=== PATIENT | male | born 1975 | race Caucasian/White ===

== ENCOUNTER 2017-09-02 12:56 | Emergency (ER) | payer BC ==
--- NOTE | 2017-09-02 15:07 | UC ---
Abdominal Pain Male HPI - HPI Summary HPI Summary: Pt presents with ongoing diarrhea and loose stools. He tells me that he had the "stomach bug" in late May - vomiting and diarrhea for 3-4 days. Since that time he has felt bloated and has had daily diarrhea 4-6 times a day. He will have a sudden urge to move his bowels and have to run to the bathroom. 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 None of his co-workers are sick. Over the last week he has had some anal itching and scant bright red blood on the toilet paper. Denies diet change , fever, chills, SOB, chest pain, abdominal pain, n/v, dysuria. - History of Current Complaint Stated Complaint: UPSET STOMACH Time Seen by Provider: 09/02/17 14:58 Hx Obtained From: Patient Onset/Duration: Gradual Onset Severity Currently: None - Allergies/Home Medications Allergies/Adverse Reactions: Allergies Allergy/AdvReac Type Severity Reaction Status Date / Time No Known Allergies Allergy Verified 09/02/17 14:56 Home Medications: Home Medications Calcium Carbonate CHEW TAB* [Tums*] 1,000 mg PO BID PRN 09/02/17 [History Confirmed 09/02/17] Naproxen Sodium [Aleve] 220 mg PO DAILY PRN 09/02/17 [History Confirmed 09/02/17 ] PMH/Surg Hx/FS Hx/Imm Hx Previously Healthy: Yes - Surgical History Surgical History: None - Family History Known Family History: Positive: Unknown - Social History Occupation: Employed Full-time Lives: With Family Alcohol Use: Daily Substance Use Type: None Type: Cigarettes Amount Used/How Often: 1 ppd Review of Systems Constitutional: Negative Skin: Negative Respiratory: Negative Cardiovascular: Negative Gastrointestinal: Diarrhea Genitourinary: Negative Neurovascular: Negative Musculoskeletal: Negative Neurological: Negative Psychological: Negative All Other Systems Reviewed And Are Negative: Yes Physical Exam - Summary Physical Exam Summary: GENERAL: NAD. WDWN. No pain distress. SKIN: No rashes, sores, ulcers, masses, lesions. NECK: Supple. Nontender. No lymphadenopathy. CHEST: CTAB. No r/r/w. No accessory muscle use. Breathing comfortably and in no distress. CV: RRR. Without m/r/g. Pulses intact. Brisk cap refill. ABDOMEN: Soft. NTTP. No distention or guarding. No organomegaly. No CVA tenderness. Bowel sounds present x4. NEURO: Alert. CN II-XII grossly intact. PSYCH: Age appropriate behavior. Refused rectal exam today. Triage Information Reviewed: Yes Abd Pain Male Course/Dx - Course Course Of Treatment: Pt is asking that no tests or referrals be made because he is unsure what his insurance will cover. I think, at minimum, getting stool cultures are important for his current condition. He was agreeable to this. - Differential Dx/Clinical Impression Provider Diagnoses: Diarrhea Discharge - Sign-Out/Discharge Documenting (check all that apply): Discharge - Discharge Plan Condition: Stable Disposition: HOME Prescriptions: Ciprofloxacin TAB* [Cipro 500 MG TAB*] 500 mg PO BID #10 tab Hydrocortisone SUPP* [Anusol HC Supp*] 25 mg [place] BID #14 supp metroNIDAZOLE [Flagyl 500 MG TAB] 500 mg PO TID #15 tab Patient Education Materials: Chronic Diarrhea (ED) Referrals: No Primary Care Phys,NOPCP [Primary Care Provider] - Additional Instructions: If you develop a fever, shortness of breath, chest pain, new or worsening symptoms - please call your PCP or go to the ED. Your blood pressure was high at todays visit. Please see your primary provider within 4 weeks for recheck and re-evaluation. - Billing Disposition and Condition Condition: STABLE Disposition: HOME
[2017-09-02 15:09] VITALS: BP 151/82
== END 2017-09-02 15:45 | disposition home or self-care (01) ==
LOC: UCCORT 12:56
DX: R19.7 Diarrhea, unspecified (principal); F17.210 Nicotine dependence, cigarettes, uncomplicated
CPT/HCPCS: 99212; G0463

== ENCOUNTER 2022-06-15 20:05 | Observation (INO) ==
[2022-06-15 20:42] LABS: ABS Basophils 0.1 10^3/ul (0-0.2); ABS Eosinophils 0.1 10^3/ul (0-0.6); ABS Lymphocytes 2.7 10^3/ul (1.0-4.8); ABS Monocytes 1.5 10^3/ul (0-0.8); ABS Neutrophils 12.7 10^3/ul (1.5-7.7); Eosinophil % 0.3 %; Hematocrit 46 % (42-52); Hemoglobin 15.7 g/dL (14.0-18.0); Lymphocyte % 16.1 %; Mean Corpuscular HGB Conc 34 g/dL (31-36); Mean Corpuscular Hemoglobin 31 pg (27-31); Mean Corpuscular Volume 89 fL (80-94); Mean Platelet Volume 8.3 fL (7.4-10.4); Platelet Count 188 10^3/uL (150-450); Red Blood Count 5.15 10^6 /uL (4.18-5.48); Red Cell Distribution Width 13 % (10-15); White Blood Count 17.1 10^3/uL (3.5-10.8)
[2022-06-15 21:01] LABS: INR 1.07 (0.88-1.18)
[2022-06-15] MEDS ORDERED: Lactated Ringers 1000 ml BAG 1,000 ML IV ONE ×2 (21:01→22:07)
[2022-06-15 21:27] LABS: Albumin 4.2 g/dL (3.2-5.2); Albumin/Globulin Ratio 1.8 (1-3); Globulin 2.4 g/dL (2-4); Potassium 3.7 mmol/L (3.5-5.0); Total Bilirubin 1.4 mg/dL (0.2-1.0); Total Protein 6.6 g/dL (6.4-8.9); eGFR CKD-EPI 120.4 (>60)
[2022-06-15 21:35] LABS: TSH Ultra Thyroid Stim Horm 0.84 mcIU/mL (0.34-5.60)
[2022-06-15 22:06] LABS: High Sensitivity Troponin 1 Hr 34 pg/mL (<20)
[2022-06-15 22:27] LABS: C Reactive Protein 1.91 mg/L (<8.01)
[2022-06-15 22:46] LABS: Urine Appearance Clear; Urine Bilirubin Negative (Negative); Urine Blood 1+ (Negative); Urine Color Straw; Urine Glucose Negative (Negative); Urine Ketones Trace (Negative); Urine Nitrite Negative (Negative); Urine Protein Negative (Negative); Urine Specific Gravity 1.001 (1.002-1.030); Urine Urobilinogen Negative (Negative)
[2022-06-15 22:51] LABS: Urine Bacteria Absent (Absent); Urine Red Blood Cell Trace(0-2/hpf) (Absent); Urine White Blood Cell Trace(0-5/hpf) (Absent)
[2022-06-15 23:00] LABS: Urine Benzodiazepine Screen None Detected (None Detect); Urine Cannabinoids Screen None Detected (None Detect); Urine Opiates Screen None Detected (None Detect)
[2022-06-15] MEDS ORDERED: Thiamine 100 MG/ML 2 ml VIAL (200 mg) IM ONE (23:01)
[2022-06-16] MEDS: Multivitamins/Minerals TAB PO SCH ×2 (00:30→08:48)
[2022-06-16 01:31] LABS: Calcium 8.7 mg/dL (8.6-10.3); Potassium 4.4 mmol/L (3.5-5.0)
[2022-06-16] MEDS ORDERED: Enoxaparin 40 MG/0.4 ML SYR SUBCUT SCH (02:00)
[2022-06-16] MEDS ORDERED: Nicotine PATCH 21 MG/24 HR PATCH TRANSDERM ONE (03:40)
[2022-06-16] MEDS ORDERED: Nicotine GUM 4MG FRUIT FLAVOR PO PRN (03:40)
[2022-06-16 09:48] LABS: Osmolality Serum 280 mOsm/kg (275-295)
[2022-06-16] MEDS ORDERED: Nicotine PATCH 7 MG/24 HR PATCH TRANSDERM SCH (10:00)
[2022-06-16 13:30] VITALS: BP 149/89
== END 2022-06-16 14:00 | disposition home or self-care (01) ==
LOC: EDHOLD 20:05 → ED 20:05 → SUATTDRO 22:52 → MEDTELE 23:59
PROVIDERS: ADMIT Hospitalist; ATTEND Internal Medicine